=== PATIENT | female | born 1970 | race African-American/Black ===

== ENCOUNTER 2019-06-10 04:09 | Emergency (ER) | payer SELFPAY ==
[2019-06-10] MEDS ORDERED: FENTANYL CITRATE INJ/PF 100 MCG/2 ML AMPUL IV ONE ×2 (05:35→08:38)
--- NOTE | 2019-06-10 05:38 | ER Document Report ---
ED Medical Screen (RME) - General Chief Complaint: Headache Stated Complaint: HEADACHE Time Seen by Provider: 06/10/19 05:28 Notes: 48-year-old female with a history of lupus and Behcet's disease that comes emergency department for chief complaint of worsening blurry vision, pain behind her eyes worse on the left, generalized body tightness, she also felt a tightness across her chest prior to arrival. She denies pain in the chest, difficulty breathing, fever, vomiting, passing out. She states that she does have a history of optic neuritis/iritis when I asked, she just moved here and usually gets admitted to [facility] with high-dose steroids when she gets like this reportedly. She is also on Xarelto and has diabetes, states her blood sugar was in the 300s earlier. - Related Data Allergies/Adverse Reactions: codeine Allergy (Verified 06/10/19 05:17) morphine Allergy (Verified 06/10/19 05:17) sumatriptan [From Imitrex] Allergy (Verified 06/10/19 05:17) aspirin Adverse Reaction (Verified 06/10/19 05:17) Physical Exam - Vital signs Vitals: Temp Pulse Resp BP Pulse Ox 97.9 F 82 16 117/74 98 06/10/19 04:29 06/10/19 04:29 06/10/19 04:29 06/10/19 04:29 06/10/19 04:29 - Neurological Isela Coma Scale Eye Opening: Spontaneous Isela Coma Scale Verbal: Oriented [place] Coma Scale Motor: Obeys Commands Isela Coma Scale Total: 15 Speech: Other - Severe stuttering and grimacing of the mouth towards the left Cranial nerves: No: Facial palsy, Forehead sparing, Gaze palsy, Tongue deviation Course - Re-evaluation Re-evalutation: Patient tremulous, having difficulty forming words without stuttering, reporting blurry vision, concern for optic neuritis Behcet's disease, and lupus flare. Work-up pending, patient will be provided with some symptom management, she states the only pain medication she can safely take without side effects is fentanyl. I have greeted and performed a rapid initial assessment of this patient. A comprehensive ED assessment and evaluation of the patient, analysis of test results and completion of the medical decision making process will be conducted by additional ED providers. - Vital Signs Vital signs: Temp Pulse Resp BP Pulse Ox 97.9 F 82 16 117/74 98 06/10/19 04:06/10/19 04:06/10/19 04:06/10/19 04:06/10/19 04:29
[2019-06-10 06:11] LABS: VENOUS BLOOD BASE EXCESS -4.8 mmol/L; VENOUS BLOOD HCO3 21.6 mmol/L (20-32); VENOUS BLOOD PH 7.3 (7.30-7.42)
[2019-06-10 06:12] LABS: ABSOLUTE LYMPHOCYTES (AUTO) 3.3 10^3/uL (0.5-4.7); ABSOLUTE MONOCYTES (AUTO) 0.6 10^3/uL (0.1-1.4); BASOPHILS % (AUTO) 0.4 % (0-2); EOSINOPHILS % (AUTO) 0.6 % (0-6); HEMOGLOBIN 13.2 g/dL (12.0-15.5); LYMPHOCYTES % (AUTO) 55.5 % (13-45); MEAN CORPUSCULAR HEMOGLOBIN 31.7 pg (27.0-33.4); MEAN CORPUSCULAR VOLUME 94 fl (80-97); PLATELET COUNT 315 10^3/uL (150-450); RED BLOOD COUNT 4.17 10^6/uL (3.72-5.28); RED CELL DISTRIBUTION WIDTH 14.6 % (11.5-14.0); SEGMENTED NEUTROPHILS % (AUTO) 33.5 % (42-78); TOTAL CELLS COUNTED % (AUTO) 100 %; WHITE BLOOD COUNT 5.9 10^3/uL (4.0-10.5)
[2019-06-10 06:33] LABS: ALKALINE PHOSPHATASE 51 U/L (38-126); ANION GAP 8 (5-19); ASPARTATE AMINO TRANSFERASE 15 U/L (14-36); BILIRUBIN,DIRECT 0.1 mg/dL (0.0-0.4); BILIRUBIN,TOTAL 0.2 mg/dL (0.2-1.3); BLOOD UREA NITROGEN 14 mg/dL (7-20); CALCIUM 9.3 mg/dL (8.4-10.2); CARBON DIOXIDE 25 mmol/L (22-30); CHLORIDE 107 mmol/L (98-107); GLUCOSE 98 mg/dL (75-110); POTASSIUM 4.1 mmol/L (3.6-5.0); TOTAL PROTEIN 6.7 g/dL (6.3-8.2)
--- NOTE | 2019-06-10 06:38 | ER Document Report ---
ED General - General Chief Complaint: Headache Stated Complaint: HEADACHE Time Seen by Provider: 06/10/19 05:28 - HPI Notes: Patient is a 48-year-old female with a history of Behcet's disease, lupus, rheumatoid arthritis, diabetes, who presents emergency department for evaluation of headache, blurred vision, increased word finding difficulties. She states that these have been going on for the last several days, worse today. She has a headache that she currently rates an 8 out of 10. It is typical of her headaches that come with flares, but this seems to be moving around her head more than staying in a frontal location. She states that she is been told in the past that her symptoms could be triggered by stress, she admits she has been under a significant amount of stress. She follows with a neurologist at [facility], often requires admission for IV steroids when her flares are this bad. - Related Data Allergies/Adverse Reactions: codeine Allergy (Verified 06/10/19 05:17) morphine Allergy (Verified 06/10/19 05:17) sumatriptan [From Imitrex] Allergy (Verified 06/10/19 05:17) aspirin Adverse Reaction (Verified 06/10/19 05:17) Past Medical History - General Information source: Patient - Social History Smoking Status: Never Smoker Family History: Reviewed & Not Pertinent Patient has suicidal ideation: No Patient has homicidal ideation: No - Medical History Notes: Patient had syndrome, diabetes mellitus type 2, systemic lupus erythematosus, rheumatoid arthritis Endocrine Medical History: Reports: Hx Diabetes Mellitus Type 2 Review of Systems - Review of Systems Constitutional: No symptoms reported EENT: See HPI Cardiovascular: No symptoms reported Respiratory: No symptoms reported Gastrointestinal: No symptoms reported Genitourinary: No symptoms reported Musculoskeletal: No symptoms reported Skin: No symptoms reported Neurological/Psychological: See HPI Physical Exam - Vital signs Vitals: Temp Pulse Resp BP Pulse Ox 97.9 F 82 16 117/74 98 06/10/19 04:06/10/19 04:06/10/19 04:06/10/19 04:06/10/19 04:29 - Notes Notes: Is a 48-year-old female appears stated age in no acute distress. She is intermittently tearful but cooperative with examiner. Vital signs reviewed, please refer to chart. Head is normocephalic, atraumatic. Pupils equal round, reactive to light. Neck is supple without meningismus. Heart is regular rate and rhythm. Lungs are clear to auscultation bilaterally. Abdomen is soft, nontender, normoactive bowel sounds throughout. Extremities without cyanosis, clubbing. Posterior calves are nontender. Peripheral pulses are equal. Skin is warm and dry. Patient is awake and alert, oriented x3. She has intermittent left-sided grimace with near apparent facial droop and asymmetry of the nasolabial folds. She has an extensive stutter and some mild expressive ap hasia. The remainder of cranial nerves II through XII are grossly intact without focal neurological deficits. Strength is 4+ out of 5 bilateral upper and lower extremities. Sensation is diminished peripherally secondary to neuropathy. Reflexes are symmetrical. Intact [id number] and rapid alternating movements. Course - Re-evaluation Re-evalutation: 06/10/19 09:42 Patient presents emergency department for evaluation of visual changes, stutter, numbness, headache. These are all symptoms that she has had repeatedly when she has a flare of her lupus and/or her shots. I am concerned over the possibility of optic neuritis and uveitis in this patient. I am unable to evaluate her visual acuity, she does have corrective lenses which she does not have with her. Her laboratory vesication's failed to reveal any significant abnormality. As her neurological deficits are all similar to those in the past, I defer CT scan. The patient states this is all stable. She was treated with fentanyl, which she states she tolerates well. She was further given IV steroids. We do not have neurology here. I spoke with Dr. Olivia Vazquez, medicine physician at [facility], who happily excepted the patient to a medical floor bed. - Vital Signs Vital signs: Temp Pulse Resp BP Pulse Ox 97.5 F 78 14 123/81 97 06/10/19 12:02 06/10/19 12:02 06/10/19 12:02 06/10/19 12:02 06/10/19 12:02 - Laboratory Result Diagrams: 06/10/19 05:58 06/10/19 05:58 Laboratory results interpreted by me: 06/10/19 05:58 RDW 14.6 H Lymph % (Auto) 55.5 H Seg Neutrophils % 33.5 L - Diagnostic Test Radiology reviewed: Reports reviewed Radiology results interpreted by me: 06/10/19 09:46 Chest X-Ray 06/10/19 05:35 IMPRESSION: NO ACUTE RADIOGRAPHIC FINDING IN THE CHEST. - EKG Interpretation by Me Additional EKG results interpreted by me: 06/10/19 09:46 Sinus mechanism with rate of 76 bpm. Normal axis and intervals, no acute ST changes concerning for ischemia or infarction. Discharge - Discharge Clinical Impression: Systemic lupus erythematosus (SLE) in adult, Behcets syndrome, Uveitis versus optic neuritis Condition: Stable Disposition: [facility] Admitting Provider: Dr. Sayra Vazquez
[2019-06-10] MEDS ORDERED: METHYLPREDNISOLONE INJ 125 MG/2 ML SDV IV ONE (06:39)
[2019-06-10 07:03] LABS: ERYTHROCYTE SEDIMENTATION RATE 13 mm/hr (0-20)
--- NOTE | 2019-06-10 07:06 | RADIOLOGY REPORT (SQ) ---
EXAM DESCRIPTION: CHEST SINGLE VIEW COMPLETED DATE/TIME: 06/10/2019 6:40 am REASON FOR STUDY: chest tightness COMPARISON: None. EXAM PARAMETERS: NUMBER OF VIEWS: One view. TECHNIQUE: Single frontal radiographic view of the chest acquired. RADIATION DOSE: NA LIMITATIONS: None. FINDINGS: LUNGS AND PLEURA: No opacities, masses or pneumothorax. No pleural effusion. MEDIASTINUM AND HILAR STRUCTURES: No masses. Contour normal. HEART AND VASCULAR STRUCTURES: Heart normal in size. Normal vasculature. BONES: No acute findings. HARDWARE: None in the chest. OTHER: No other significant finding. IMPRESSION: NO ACUTE RADIOGRAPHIC FINDING IN THE CHEST. TECHNICAL DOCUMENTATION: JOB ID: [id number] [employer]- All Rights Reserved Reading location - IP/workstation name: [email or web address]
[2019-06-10 11:11] VITALS: BP 123/81
--- NOTE | 2019-06-11 00:48 | EKG REPORT ---
SEVERITY:- NORMAL ECG - SINUS RHYTHM : Confirmed by: Sonja Rodgers 11-Jun-2019 00:47:10
== END 2019-06-10 12:07 | disposition short-term general hospital (02) ==
LOC: ER 04:09
DX: M32.9 Systemic lupus erythematosus, unspecified (principal); M35.2 Behcet's disease; H53.8 Other visual disturbances; R51 Headache; E11.9 Type 2 diabetes mellitus without complications; M06.9 Rheumatoid arthritis, unspecified
CPT/HCPCS: 93005; 96376; 99285; 96374; 96375; 36415; 84703; 85025; 85652; 80053; 84484; 82803; 71045; 93010; J3010; J2930

== ENCOUNTER 2019-12-13 14:28 | Emergency (ER) | payer MEDICARE, MEDICAID ==
[2019-12-13] MEDS ORDERED: METOCLOPRAMIDE HCL INJ/PF 10 MG/2 ML SDV IV ONE (14:33)
[2019-12-13] MEDS ORDERED: DEXAMETHASONE SOD PHOSPHATE INJ 4 MG/1 ML VIAL IV ONE (14:33)
[2019-12-13] MEDS ORDERED: DIPHENHYDRAMINE HCL 50 MG/ML VIAL IV ONE (14:33)
[2019-12-13] MEDS ORDERED: HYDROMORPHONE HCL INJ/PF 2 MG/ML AMPULE IV ONE (14:34)
--- NOTE | 2019-12-13 14:35 | ER Document Report ---
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 Feels like she hurts all over as well typical of a Behcet's flare. Not on steroids but on blood thinners and immunosuppressants. No fever no neck stiffness no photophobia. Vital signs normal for EMS. - Related Data Allergies/Adverse Reactions: acetaminophen [From Percocet] Allergy (Verified 12/13/19 14:45) codeine Allergy (Verified 06/10/19 05:17) ketorolac [From Toradol] Allergy (Verified 12/13/19 14:45) morphine Allergy (Verified 06/10/19 05:17) oxycodone [From Percocet] Allergy (Verified 12/13/19 14:45) sumatriptan [From Imitrex] Allergy (Verified 06/10/19 05:17) aspirin Adverse Reaction (Verified 06/10/19 05:17) Past Medical History - Social History Smoking Status: Unknown if Ever Smoked Family History: Reviewed & Not Pertinent Endocrine Medical History: Reports: Hx Diabetes Mellitus Type 2 Review of Systems - Review of Systems Notes: REVIEW OF SYSTEMS GEN: Denies fever, chills, weight loss ENT: Denies sore throat, nasal discharge, ear pain EYES: Denies blurry vision, eye pain, discharge CV: Denies chest pain, palpitations, edema RESP: Denies cough, shortness of breath, wheezing GI: Denies abdominal pain, nausea, vomiting, diarrhea MSK: Denies joint pain/swelling, edema, SKIN: Denies rash, skin lesions LYMPH: Denies swollen glands/lymph nodes NEURO: See HPI stutteringworse with headaches but no neuro symptoms other than not PSYCH: Denies depression, suicidal or homicidal ideation PHYSICAL EXAMINATION General: N tearful Head: Atraumatic, normocephalic ENT: Mouth normal, oropharynx moist, no exudates or tonsillar enlargement Eyes: Conjunctiva normal, pupils equal, lids normal Neck: No JVD, supple, no guarding CVS: Normal rate, regular rhythm, no murmurs Resp: No resp distress, equal and normal breath sounds bilaterally GI: Nondistended, soft, no tenderness to palpation, no rebound or guarding Ext: No deformities, no edema, normal range of motion in upper and lower ext Back: No CVA or midline TTP Skin: No rash, warm Lymphatic: No lymphadeopathy noted Neuro: Severe stuttering. Nerves intact, no other neurologic deficits including normal strength and sensation throughout awake, alert. Face symmetric. GCS 15. Physical Exam - Vital signs Vitals: Temp Pulse Resp BP Pulse Ox 99.2 F 81 16 123/75 93 12/13/19 14:34 12/13/19 14:34 12/13/19 14:34 12/13/19 14:34 12/13/19 14:34 Course - Re-evaluation Re-evalutation: 12/23/19 22:19 ST body pain with no fever, menigeal signs in pt with autoimmune d no ams, no drugs, nl neuro exam CT to r/o SAH is neg, also no mass Doubt need for LP. DOubt stroke. Also has migraines: given cocktail and pain much better Stable for outpt f/u - Vital Signs Vital signs: Temp Pulse Resp BP Pulse Ox 97.7 F 65 18 102/61 98 12/13/19 16:50 12/13/19 16:50 12/13/19 16:50 12/13/19 16:50 12/13/19 16:50 Discharge - Discharge Clinical Impression: Migraine Condition: Good Disposition: HOME, SELF-CARE Instructions: Antinausea Medication ([facility]), Headache ([facility]) Additional Instructions: It is difficult to tell if you are having a flareup of your lupus based on your emergency department visit today however we are treating you for migraine which may be associated with a lupus flare Prescriptions: Promethazine HCl [Phenergan 25 mg Supp.rect] 25 mg SD Q4HP PRN #[id number] supp.rect PRN Reason: Referrals: ALYX GUILLAUME MD [Primary Care Provider] - Follow up as needed
--- NOTE | 2019-12-13 15:21 | RADIOLOGY REPORT (SQ) ---
EXAM DESCRIPTION: CT HEAD WITHOUT IMAGES COMPLETED DATE/TIME: 12/13/2019 1:54 pm REASON FOR STUDY: HEADACHE LUPUS COMPARISON: None. TECHNIQUE: Axial images acquired through the brain without intravenous contrast. Images reviewed wi th bone, brain and subdural windows. Additional sagittal and coronal reconstructions were generated. Images stored on PACS. All CT scanners at this facility use dose modulation, iterative reconstruction, and/or weight based d osing when appropriate to reduce radiation dose to as low as reasonably achievable (ALARA). [facility]: Dose Right [facility]: CareDose [facility]: Dose Right [facility]: Teradose 4D [facility]: [employer] RADIATION DOSE: CT Rad equipment meets quality standard of care and radiation dose reduction techniq ues were employed. CTDIvol: 48.5 mGy. DLP: 855 mGy-cm. mGy. LIMITATIONS: None. FINDINGS: VENTRICLES: Normal size and contour. CEREBRUM: No masses. No hemorrhage. No midline shift. No evidence for acute infarction. Normal gra y/white matter differentiation. No areas of low density in the white matter. CEREBELLUM: No masses. No hemorrhage. No alteration of density. No evidence for acute infarction. EXTRAAXIAL SPACES: No fluid collections. No masses. ORBITS AND GLOBE: No intra- or extraconal masses. Normal contour of globe without masses. CALVARIUM: No fracture. PARANASAL SINUSES: No fluid or mucosal thickening. SOFT TISSUES: No mass or hematoma. OTHER: No other significant finding. IMPRESSION: No acute intracranial hemorrhage, mass, or evidence of acute territorial infarct. EVIDENCE OF ACUTE STROKE: NO. COMMENT: Quality ID # [id number]: Final reports with documentation of one or more dose reduction techniques (e.g., Automated exposure control, adjustment of the mA and/or kV according to patient size, use of iterative reconstruction technique) TECHNICAL DOCUMENTATION: JOB ID: [id number] 2010 [employer]- All Rights Reserved Reading location - IP/workstation name: [email or web address]
[2019-12-13 16:59] VITALS: BP 102/61
== END 2019-12-13 16:55 | disposition home or self-care (01) ==
LOC: ER 14:28
DX: G43.909 Migraine, unspecified, not intractable, without status migrainosus (principal); R11.2 Nausea with vomiting, unspecified; F80.81 Childhood onset fluency disorder; E11.9 Type 2 diabetes mellitus without complications; M35.2 Behcet's disease; Z79.899 Other long term (current) drug therapy; Z88.8 Allergy status to other drugs, medicaments and biological substances; Z88.6 Allergy status to analgesic agent; Z88.5 Allergy status to narcotic agent
CPT/HCPCS: 99284; 70450; J1100; J1200; J2765; J1170

== ENCOUNTER → 2020-01-08 | Outpatient (CLI) | payer MEDICARE, MEDICAID ==
[2020-01-08 10:08] LABS: ABSOLUTE LYMPHOCYTES (AUTO) 2.3 10^3/uL (0.5-4.7); ABSOLUTE MONOCYTES (AUTO) 0.4 10^3/uL (0.1-1.4); ABSOLUTE NEUT (AUTO) 2.4 10^3/uL (1.7-8.2); BASOPHILS % (AUTO) 0.5 % (0-2); EOSINOPHILS % (AUTO) 0.9 % (0-6); HEMATOCRIT 40.4 % (36.0-47.0); HEMOGLOBIN 14.2 g/dL (12.0-15.5); LYMPHOCYTES % (AUTO) 44.4 % (13-45); MEAN CORPUSCULAR HEMOGLOBIN 32.8 pg (27.0-33.4); MEAN CORPUSCULAR HGB CONC 35.1 g/dL (32.0-36.0); MEAN CORPUSCULAR VOLUME 94 fl (80-97); MONOCYTES % (AUTO) 8.5 % (3-13); PLATELET COUNT 271 10^3/uL (150-450); RED BLOOD COUNT 4.32 10^6/uL (3.72-5.28); RED CELL DISTRIBUTION WIDTH 13.5 % (11.5-14.0); SEGMENTED NEUTROPHILS % (AUTO) 45.7 % (42-78); TOTAL CELLS COUNTED % (AUTO) 100 %; WHITE BLOOD COUNT 5.1 10^3/uL (4.0-10.5)
[2020-01-08 10:29] LABS: ALBUMIN 4.2 g/dL (3.5-5.0); ALKALINE PHOSPHATASE 50 U/L (38-126); ANION GAP 7 (5-19); ASPARTATE AMINO TRANSFERASE 18 U/L (14-36); BILIRUBIN,TOTAL 0.7 mg/dL (0.2-1.3); CALCIUM 9.4 mg/dL (8.4-10.2); CARBON DIOXIDE 25 mmol/L (22-30); CHLORIDE 105 mmol/L (98-107); CHOLESTEROL 192.52 mg/dL (0-200); GLUCOSE 95 mg/dL (75-110); POTASSIUM 4.1 mmol/L (3.6-5.0); TOTAL PROTEIN 7.2 g/dL (6.3-8.2); TRIGLYCERIDES 73 mg/dL (<150)
[2020-01-08 10:40] LABS: DIRECT LDL 107 mg/dL (<100)
[2020-01-08 11:00] LABS: BLOOD UREA NITROGEN 12 mg/dL (7-20)
[2020-01-09 07:38] LABS: MICROALBUMIN URINE 16.4 ug/mL (Not Estab.)
== END ==
LOC: OD 09:13
PROVIDERS: ATTEND Family Medicine Geriatric Medicine
DX: E11.21 Type 2 diabetes mellitus with diabetic nephropathy (principal); E78.5 Hyperlipidemia, unspecified; D64.9 Anemia, unspecified; I10 Essential (primary) hypertension; E55.9 Vitamin D deficiency, unspecified; E53.9 Vitamin B deficiency, unspecified; Z79.899 Other long term (current) drug therapy
CPT/HCPCS: 36415; 80053; 80061; 82043; 82306; 82570; 82607; 83036; 83735; 84443; 85025

== ENCOUNTER → 2020-02-19 | Outpatient (CLI) | payer MEDICARE, MEDICAID | LOC: WI 09:50 | PROVIDERS: ATTEND Family Medicine Geriatric Medicine | DX: Z12.31 Encounter for screening mammogram for malignant neoplasm of breast (principal) | CPT/HCPCS: 77067 ==

== ENCOUNTER → 2020-03-17 | Outpatient (CLI) | payer MEDICARE, MEDICAID ==
[2020-03-17 09:20] LABS: TRIGLYCERIDES 112 mg/dL (<150)
[2020-03-17 09:31] LABS: DIRECT LDL 80 mg/dL (<100)
== END ==
LOC: OD 08:01
PROVIDERS: ATTEND Family Medicine Geriatric Medicine
DX: E78.5 Hyperlipidemia, unspecified (principal); Z79.899 Other long term (current) drug therapy
CPT/HCPCS: 36415; 80061; 84460

== ENCOUNTER → 2020-08-25 | Outpatient (CLI) | payer MEDICARE, MEDICAID ==
[2020-08-25 10:43] LABS: ABSOLUTE EOSINOPHILS # (AUTO) 0.1 10^3/uL (0.0-0.6); ABSOLUTE LYMPHOCYTES (AUTO) 2.1 10^3/uL (0.5-4.7); ABSOLUTE MONOCYTES (AUTO) 0.6 10^3/uL (0.1-1.4); BASOPHILS % (AUTO) 0.3 % (0-2); EOSINOPHILS % (AUTO) 1.5 % (0-6); HEMOGLOBIN 13.5 g/dL (12.0-15.5); LYMPHOCYTES % (AUTO) 45.1 % (13-45); MEAN CORPUSCULAR HGB CONC 33.7 g/dL (32.0-36.0); MEAN CORPUSCULAR VOLUME 95 fl (80-97); MONOCYTES % (AUTO) 11.7 % (3-13); PLATELET COUNT 252 10^3/uL (150-450); RED CELL DISTRIBUTION WIDTH 14.1 % (11.5-14.0); SEGMENTED NEUTROPHILS % (AUTO) 41.4 % (42-78); TOTAL CELLS COUNTED % (AUTO) 100 %; WHITE BLOOD COUNT 4.7 10^3/uL (4.0-10.5)
[2020-08-25 11:05] LABS: ALBUMIN 4.2 g/dL (3.5-5.0); ALKALINE PHOSPHATASE 42 U/L (38-126); ANION GAP 10 (5-19); ASPARTATE AMINO TRANSFERASE 18 U/L (14-36); BILIRUBIN,DIRECT 0.1 mg/dL (0.0-0.4); BILIRUBIN,TOTAL 0.5 mg/dL (0.2-1.3); BLOOD UREA NITROGEN 11 mg/dL (7-20); CALCIUM 9.6 mg/dL (8.4-10.2); CARBON DIOXIDE 23 mmol/L (22-30); CHLORIDE 106 mmol/L (98-107); CHOLESTEROL 200.59 mg/dL (0-200); GLUCOSE 100 mg/dL (75-110); POTASSIUM 4.6 mmol/L (3.6-5.0); TOTAL PROTEIN 6.6 g/dL (6.3-8.2); TRIGLYCERIDES 77 mg/dL (<150)
[2020-08-25 11:16] LABS: DIRECT LDL 90 mg/dL (<100)
[2020-08-26 12:36] LABS: CREATININE URINE 248.3 mg/dL (Not Estab.); MICROALBUMIN URINE 8.2 ug/mL (Not Estab.)
== END ==
LOC: OD 09:33
PROVIDERS: ATTEND Family Medicine Geriatric Medicine
DX: E11.21 Type 2 diabetes mellitus with diabetic nephropathy (principal); E78.5 Hyperlipidemia, unspecified; I10 Essential (primary) hypertension; Z79.899 Other long term (current) drug therapy
CPT/HCPCS: 36415; 80053; 80061; 82043; 82570; 83036; 85025